=== PATIENT | male | born 1980 | race African-American/Black ===

== ENCOUNTER 2022-05-31 02:40 | Emergency (ER) | payer MEDICARE ==
[~2022-05-31] VITALS: Ht 177.8 cm; Wt 77.0 kg
[2022-05-31 03:37] LABS: CHLORIDE 108 mEq/L (98-107)
[2022-05-31 03:41] LABS: BASOPHILS % 0.5 % (0.0-2.0); HEMOGLOBIN. 13.5 g/dL (14.0-18.0); LYMPHOCYTES % 24.9 % (20.0-50.0); MEAN CORPUSCULAR HEMOGLOBIN 28.3 pg (28.0-32.0); MEAN CORPUSCULAR VOLUME 85.7 fL (80.0-94.0); MEAN PLATELET VOLUME 7.9 fl (7.4-10.4); MONOCYTES % 7.1 % (2.0-8.0); NEUTROPHILS % 66.5 % (40.0-76.0); PLATELET 370 x1000/uL (130-400); RED BLOOD CELL COUNT 4.79 mill/uL (4.7-6.1); RED CELL DISTRIBUTION WIDTH 15.7 % (11.6-14.6)
[2022-05-31 03:45] LABS: ETHANOL BLOOD < 10 mg/dL
[2022-05-31 11:55] LABS: CLARITY URINE CLEAR (CLEAR); COLOR URINE YELLOW (YELLOW); KETONES URINE 1+ (NEGATIVE); LEUKOCYTE ESTERASE URINE NEGATIVE (NEGATIVE); NITRITE URINE NEGATIVE (NEGATIVE); OCCULT BLOOD URINE 2+ (NEGATIVE); PROTEIN URINE TRACE (NEGATIVE); SPECIFIC GRAVITY URINE 1.027 (1.005-1.030)
[2022-05-31] MEDS: OLANZAPINE 5MG TABLET PO SCH ×2 (12:11→17:39)
[2022-05-31 13:03] LABS: *AMPHETAMINES SCREEN URINE PRESUMTIVE POSITIVE (NEGATIVE); *BARBITURATES SCREEN URINE NEGATIVE (NEGATIVE); *BENZODIAZEPINES SCREEN URINE NEGATIVE (NEGATIVE); *COCAINE SCREEN URINE NEGATIVE (NEGATIVE); CANNABINOID URINE SCREEN PRESUMTIVE POSITIVE (NEGATIVE); METHADONE URINE SCREEN NEGATIVE (NEGATIVE); OPIATES URINE SCREEN NEGATIVE (NEGATIVE); PHENCYCLIDINE URINE SCREEN NEGATIVE (NEGATIVE)
[2022-05-31] MEDS: VENLAFAXINE HCL 37.5MG SR CAPSULE 24HR PO SCH (14:16)
[2022-05-31] MEDS ORDERED: LORAZEPAM 2MG/ML CPJ IM ONE (15:15)
[2022-06-01] MEDS: VENLAFAXINE HCL 37.5MG SR CAPSULE 24HR PO SCH (09:27)
[2022-06-01] MEDS: OLANZAPINE 5MG TABLET PO SCH (09:27)
[2022-06-01 13:57] VITALS: BP 127/79
== END 2022-06-01 14:04 | disposition home or self-care (01) ==
LOC: ER 02:46
DX: F20.0 Paranoid schizophrenia (principal); R45.851 Suicidal ideations; F15.10 Other stimulant abuse, uncomplicated; F12.90 Cannabis use, unspecified, uncomplicated; R03.0 Elevated blood-pressure reading, without diagnosis of hypertension; Z20.822 Contact with and (suspected) exposure to COVID-19; Z91.14 Patient's other noncompliance with medication regimen; Z75.1 Person awaiting admission to adequate facility elsewhere; Z59.02 Unsheltered homelessness
CPT/HCPCS: 36415; 80053; 80305; 80307; 80320; 80329; 81003; 85025; 96372; 99285; C9803; J2060; U0003; U0005; G0480